=== PATIENT | male | born 1965 | race Caucasian/White ===

== ENCOUNTER 2016-05-17 16:30 | Emergency (ER) | payer OTHER ==
--- NOTE | 2016-05-17 17:12 | DIAGNOSTIC IMAGING REPORT ---
PROCEDURE: XR CHEST 2 VIEW INDICATION: ASPIRATION TECHNIQUE: PA and lateral views. COMPARISON: None. FINDINGS: Slight bibasilar infiltrates. The upper lung camacho are clear. Heart and mediastinum are normal. Thorax is normal. IMPRESSION: 1. Slight bibasilar infiltrates.
--- NOTE | 2016-05-17 18:34 | ED CLINICAL REPORT ---
Clinical Report - Physicians/Mid Levels [facility] [address] [place] [address] 05/17/2016 16:32 Patient: ANYI REDDY Time Seen: 1640. Arrived- By ambulance. Historian- patient. HISTORY OF PRESENT ILLNESS Is no longer unconscious. He has recovered. Chief Complaint: SINGLE SYNCOPAL EPISODE. This occurred today. It was abrupt in onset and has been intermittent. 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 Event was witnessed. There were preceding symptoms. At time of event, he was standing. The patient lost consciousness, was apneic and collapsed. Had a single episode. The episode lasted minutes. No injuries noted. Currently he feels normal. No weakness currently. No nausea currently. No headache currently. (was drinking coffee and aspirated. started coughing and turned blue around the lips. called 911 and told her to do CPR. Patient woke up after minutes. has hx of COPD. on abx for recent infection.). Similar symptoms previously: None. Recent medical care: The patient was seen recently in a clinic. REVIEW OF SYSTEMS No skin rash. All systems otherwise negative, except as recorded above. PAST HISTORY See nurses notes. Medications: Metoprolol Tartrate Oral. RisperiDONE Oral. PredniSONE Oral. Amoxicillin Oral. Albuterol Sulfate HFA Inhalation. Allergies: No Known Drug Allergy. SOCIAL HISTORY Smoker- current status unknown. History of occasional drug use: marijuana. Is a local resident. FAMILY HISTORY Negative. ADDITIONAL NOTES The nursing notes have been reviewed. PHYSICAL EXAM Vital Signs: 05/17/2016 16:34 BP: 138/92. HR: 87. RR: 16. O2 saturation: 95%. Temp: 97.7 F. Pain level now: 0/10. Oxygen saturation normal. Appearance: Alert. No acute distress. Eyes: Pupils equal, round and reactive to light. No nystagmus. Extraocular movements normal. ENT: Normal ENT inspection. TM's normal. Moist mucous membranes. Pharynx normal. Neck: Normal inspection. Neck supple. CVS: Normal heart rate and rhythm. Heart sounds normal. Pulses normal. Respiratory: No respiratory distress. Breath sounds normal. Abdomen: Soft and nontender. No organomegaly. Skin: Skin warm and dry. Normal skin color. No rash. Normal skin turgor. Extremities: Extremities exhibit normal ROM. No lower extremity edema. Neuro: Alert. Oriented X 3. Mood/affect normal. Cranial nerves normal (as tested). No cerebellar findings. No motor deficit. No sensory deficit. Reflexes normal. LABS, X-RAYS, AND EKG EKG: No acute process. No acute ischemia. Normal EKG. Normal sinus rhythm. Rate: 91. Normal P waves. Normal MARITZA. Normal QRS complex. Normal axis. Normal ST and T waves, QT and QTc. The study has been interpreted contemporaneously. The study has been independently viewed by me. The EKG appears to be a good tracing. Chest X-ray: (PROCEDURE: XR CHEST 2 VIEW INDICATION: ASPIRATION TECHNIQUE: PA and lateral views. COMPARISON: None. FINDINGS: Slight bibasilar infiltrates. The upper lung camacho are clear. Heart and mediastinum are normal. Thorax is normal. IMPRESSION: 1. Slight bibasilar infiltrates.). Laboratory Tests: CBC w Diff: (JL: 05/17/2016 17:15) ( MsgRcvd 05/17/2016 17:23) Final results Test Result Flag Units (Reference) WHITE BLOOD COUNT 11.0 K/uL (4.5-11.5) RED BLOOD COUNT 5.24 M/uL (4.50-5.90) HEMOGLOBIN 15.0 gm/dL (13.5-17.5) HEMATOCRIT 45.3 % (41.0-53.0) MEAN CELL VOLUME 86 fL (80-100) MEAN CORPUSCULAR HGB 29 pg (26-34) MEAN CORPUSCULAR HGB CONC 33 g/dL (31-37) RED CELL DISTRIBUTION WIDTH 14.1 % (11.6-14.8) PLATELET COUNT 270 K/uL (150-400) NEUTROPHIL % 74.0 % (50-75) LYMPH % 19.7 L % (25-40) MONO % 6.0 % (3-14) EOSINOPHIL % 0 % (0-4) BASOPHIL % 0.3 % (0-2) Troponin-I: (JL: 05/17/2016 17:57) ( MsgRcvd 05/17/2016 18:15) Final results Test Result Flag Units (Reference) TROPONIN I <0.05 L ng/mL (0.00-1.5) TROPONIN REFERENCE RANGE:<0.1 NEGATIVE0.1-1.5 INDETERMINANT>1.5 POSITIVE CMP: (JL: 05/17/2016 17:15) ( MsgRcvd 05/17/2016 17:39) Final results Test Result Flag Units (Reference) GLUCOSE 136 H mg/dL (70-110) BUN 11 mg/dL (7-18) CREATININE 0.8 mg/dL (0.6-1.3) Estimated GFR >60 mL/min Estimated GFR- >60 mL/min Note: Persistent reduction over 3 months in eGFR<60 mL/min/1.73 m2 defines CKD. Patients with eGFR values>=60 mL/min/1.73 m2 may also have CKD if evidence ofpersistent proteinuria. Additional information may be foundat [email or web address].org. SODIUM 138 mmol/L (136-145) POTASSIUM 3.9 mmol/L (3.5-5.1) CHLORIDE 99 mmol/L (98-107) CARBON DIOXIDE 31 mmol/L (21-32) CALCIUM 8.8 mg/dL (8.5-10.1) TOTAL PROTEIN 7.0 g/dL (6.4-8.2) ALBUMIN 3.3 g/dL (3.3-5.0) BILIRUBIN, TOTAL 0.4 mg/dL (0.0-1.0) ALKALINE PHOSPHATASE 86 U/L (46-116) AST (SGOT) 30 U/L (15-37) ALT (SGPT) 65 U/L (12-78) . PROGRESS AND PROCEDURES Course of Care: the patient is a pleasant 51-year-old male presenting for evaluation of syncopal type event. Appears to be related to an episode of aspiration and likely hypoxia. Patient will be evaluated the EKG and chest x-ray as well as laboratory studies for evaluation of patient's syncopal event. Patient is also been having upper respiratory tract symptoms. Patient also has history of COPD. Be concern for also underlying aspiration pneumonia versus COPD exacerbation/bronchitis. Patient is currently resting in bed and in no acute distress. Patient is requesting to return home immediately if possible. Explained to patient need for evaluation in the hospital. Patient is agreeable to the treatment and plan. patient's workup was markable for bilateral infiltrates/the patient is at the bases. Given patient's history, again either COPD exacerbation or aspiration pneumonitis. Because of the patient's symptoms here in the emergency department and history, patient will be given antibiotics for the consolidations. Patient is agreeable to treatment plan. Troponin was also noted to be negative on patient's workup. No other acute abnormalities noted. Patient with acceptable oxygen saturation levels. Patient is resting in bed and in no acute distress and appears nontoxic. Patient is a stable outpatient candidate. Patient appears to be reliable. Head discussion patient in regards to his workup here in the emergency department including diagnosis, home care, follow-up, and return precautions. All questions have been answered. The patient expressed understanding of these instructions and was agreeable to them. CLINICAL IMPRESSION Syncope(acute). 05/17/2016 17:50 BP: 118/86. HR: 93. RR: 18. O2 saturation: 92%. Blood pressure normal. Oxygen saturation: borderline. Bacterial pneumonia. Empiric antibiotics given in the ED. Hypoxia (acute resolved). acute aspiration pneumontitis. INSTRUCTIONS Warnings: GENERAL WARNINGS: Return or contact your physician immediately if your condition worsens or changes unexpectedly, if not improving as expected, or if other problems arise. SPECIFICALLY, return if you develop chest pain, fluttering sensation in your chest, lightheadedness, fainting, numbness, weakness or extreme fatigue. shortness of breath. Your Current Medications: CONTINUE TAKING THE FOLLOWING MEDICATIONS: Albuterol Sulfate HFA Inhalation. Amoxicillin Oral. Metoprolol Tartrate Oral. PredniSONE Oral. RisperiDONE Oral. Prescription Medications: Zithromax Z-Cong: Take according to package instructions. No refills. Substitution is permissible. Follow-up: Return to the emergency department as needed. Follow up with your doctor in three days. Reason for referral: recheck today's concerns. Screening today revealed the patient's blood pressure to be in the normal range. The patient should follow up with a primary care provider for blood pressure management. Understanding of the discharge instructions verbalized by patient. (Electronically signed by Ivan Myers Dr. 05/21/2016 10:44)
--- NOTE | 2016-05-17 18:34 | ED NURSING NOTES ---
Clinical Report - Nurses [facility] [address] [place] [address] 05/17/2016 16:32 Patient: ANYI REDDY TRIAGE Triage time 16:34 May 17 2016. Acuity: LEVEL 3. Chief Complaint: (Patient was sitting on couch at home, took a drink of coffee, started coughing, went to stand and fell over, he had circumoral pallor, called 911 and they instructed her to start CPR, EMS states she did this for about a minute and patient woke up). 16:42 05/17/16. SEPSIS SCREEN: Sepsis Screen. Negative (no infection suspected/documented). BRITNI COMA SCORE: Britni Coma Scale: 14- eyes open spontaneously (4); best verbal response- disoriented (4); best motor response- obeys commands (6). (Disoriented to time). --16:42 Yoana Flores R.N. 16:34 05/17/16. BP: 138/92 (regular adult cuff) taken on the left arm, while sitting. HR: 87 (regular). RR: 16 (regular). O2 saturation: 95% on room air. Temp: 97.7 F (oral). Pain level now: 0/10. --16:42 Yoana Flores R.N. Weight: 97.5 kg stated. Height/Length: 62 inches Per Patient. BMI: 39.4. --16:39 Yoana Flores R.N. Medications Albuterol Sulfate HFA Inhalation. --16:58 Yoana Flores R.N. Amoxicillin Oral. --16:58 Yoana Flores R.N. PredniSONE Oral. --16:59 Yoana Flores R.N. RisperiDONE Oral. --16:59 Yoana Flores R.N. Metoprolol Tartrate Oral. --16:59 Yoana Flores R.N. Allergies No Known Drug Allergy. --16:38 Yoana Flores R.N. History Arrived by EMS. Historian: EMS. This started just prior to arrival. ( Patient not sure of medications). He has had a cough. ( Patient just getting over the flu, he admits to not drinking water). PAST MEDICAL HX: ( COPD). SOCIAL HX: Current every day heavy tobacco smoker- 1 pack per day. History of drug use: marijuana. No alcohol use. No infectious disease exposure. ABUSE ASSESSMENT: No report of abuse. --16:42 Yoana Flores R.N. PROBLEMS: Schizophrenia. COPD - Chronic Obstructive Pulmonary Disease. --16:39 Yoana Flroes R.N. Hypertension. --16:59 Yoana Flores R.N. ADDITIONAL SURGERIES: Neck Surgery. --16:39 Yoana Flores R.N. Interventions ID band on patient. To treatment room. --16:42 Yoana Flores R.N. PHYSICAL ASSESSMENT To room via stretcher. Patient gowned. GENERAL / NEURO / PSYCH: Alert. The patient is disoriented to time. HEENT: Pupils equal, round and reactive to light. No facial asymmetry noted. Mucous membranes are pink. RESPIRATORY: Mild respiratory distress. The patient can speak in full sentences. Chest nontender. Wheezing present. CVS: Capillary refill less than 2 seconds. Pulses within normal limits. GI / : Abdomen soft and nontender and normal bowel sounds. SKIN: Skin intact. Skin is warm. --16:45 Yoana Flores R.N. NURSING PROGRESS NOTES The plan of care for this patient has been created. Oxygen administered. Monitoring of patient in place. Patient gowned. Head of bed elevated. Reassurance given. Two patient identifiers checked. Call light placed in reach. Side rails up x 2. Bed placed in lowest position. Brakes of bed on. Patient ready for evaluation- chart flagged and ED physician notified. --16:46 Yoana Flores R.N. Patient returned from radiology by stretcher with tech. (17:03 May 17 2016). --17:03 Yoana Flores R.N. 16:50 05/17/2016 Site #1 started prior to arrival by EMS via IV in the left antecubital space with an 20g angiocath. --17:05 Yoana Flores R.N. ( Patients family at bedside). --17:16 Yoana Flores R.N. 16:25 05/17/16. BP: 127/88 (large adult cuff) taken on the left arm, while lying. HR: 93. RR: 18. O2 saturation: 93% on nasal cannula at 2 liters/minute. --17:17 Yoana Flores R.NAngelika 16:45 05/17/16. BP: 111/82 (large adult cuff) taken on the left arm, while lying. HR: 94. RR: 16. O2 saturation: 94% on nasal cannula at 2 liters/minute. --17:18 Yoana Flores R.N. 16:55 05/17/16. BP: 117/75. HR: 91. RR: 18. O2 saturation: 94% on nasal cannula at 2 liters/minute. --17:19 Yoana Flores R.N. ( Patient up to use the restroom, no staggering, normal walk, patient states he is not dizzy or lightheaded.). --17:43 Yoana Flores R.N. 17:10 05/17/16. BP: 117/70 (large adult cuff) taken on the left arm, while lying. HR: 91. RR: 16. O2 saturation: 93% on nasal cannula at 2 liters/minute. --17:49 Yoana Flores R.NAngelika 17:50 05/17/16. BP: 118/86 (regular adult cuff) taken on the left arm, while lying. HR: 93. RR: 18. O2 saturation: 92% on nasal cannula at 2 liters/minute. --17:50 Yoana Flores R.N. ( Patients family left to go home). --17:50 Yoana Flores R.NAngelika 18:15 05/17/16. BP: 125/87 (large adult cuff) taken on the right arm, while sitting. HR: 90 (regular). RR: 18. O2 saturation: 90% on nasal cannula at 2 liters/minute. Pain level now: 0/10. --18:56 Yoana Flores R.N. 18:00 05/17/16. BP: 120/79 (large adult cuff) taken on the right arm, while sitting. HR: 92. RR: 18. O2 saturation: 90% on nasal cannula at 2 liters/minute. Pain level now: 0/10. --18:57 Yoana Flores R.N. 17:35 05/17/16. BP: 118/86. HR: 93. RR: 18. O2 saturation: 93% on nasal cannula at 2 liters/minute. Pain level now: 0/10. --18:58 Yoana Flores R.N. 17:25 05/17/16. BP: 117/70 (large adult cuff) taken on the right arm, while sitting. HR: 94. RR: 18. O2 saturation: 93% on nasal cannula at 2 liters/minute. Pain level now: 0/10. --18:58 Yoana Flores R.N. DISPOSITION / DISCHARGE 18:49 05/17/2016 Site #1 removed upon discharge. Bandaid applied. --18:49 Yoana Flores R.N. Departure time: 18:51 May 17 2016. Condition at departure: improved. No learning barriers present. Discharge instructions provided and reviewed with the patient. Reviewed medication(s) side effects, precautions and dosing information. Prescription(s) given to the patient. Patient verbalized understanding. Written instructions provided in Greek. The patient was discharged by the physician. He was discharged home and accompanied by spouse. He left the Emergency Department ambulatory and via private vehicle. Spouse driving. ( Patient discharged in good condition, no further questions, he will go wait in lobby for girlfriend). --18:51 Yoana Flores R.N. 18:46 05/17/16. BP: 120/84 (large adult cuff) taken on the right arm, while lying. HR: 94. RR: 18. O2 saturation: 93% on nasal cannula at 2 liters/minute. Temp: 97.8 F (oral). Pain level now: 0/10. --18:51 Yoana Flores R.N. Locked/Released at 05/17/2016 19:01 by Yoana Flores R.N.
--- NOTE | 2016-05-17 18:35 | ED ORDER SUMMARY ---
..... Patient: ANYI REDDY OrderSheet [facility] VisitID: [id number] [address] [place] [address] 51y, M Registration Date/Time: 05/17/2016 ORDER SHEET Weight: 97.5 kg (stated) Allergies: No Known Drug Allergy GENERAL ORDERS: EKG - ER Stat (16:39 05/17/2016 Albert Harden) (Ack 16:42 DAVIDoerner) (17:05 Bud R.N.) Chest 2V Urgent (16:45 05/17/2016 Albert Harden) (Ack 16:48 Santo) (16:59 Yaeck R.N.) Photograph Printer (Continuous) (aspiration and hypoxia with recent chest compressions) (16:46 05/17/2016 Albert Harden) (16:51 Harley R.N.) CBC w Diff Urgent (16:46 05/17/2016 Albert Harden) (Ack 16:48 Santo) (17:19 Harley R.N.) CMP Urgent (16:46 05/17/2016 Albert Harden) (Ack 16:48 Santo) (17:19 Harley R.N.) Pulse oximeter (16:46 05/17/2016 Albert Harden) (16:51 Harley R.N.) Oxygen (2 L/min) (NC) (16:46 05/17/2016 Albert Harden) (16:51 Harley R.N.) Troponin-I Urgent (17:55 05/17/2016 Albert Harden) (Ack 17:58 LNations ER Tech1) (18:50 LNations ER Tech1) MEDICATION ORDERS: IV FLUIDS: ORDER SHEET NOTES: [Electronically signed by Yoana Flores R.N. (19:01 05/17/2016)] [Electronically signed by Ivan Myers Dr. (10:44 05/21/2016)] [Electronically locked/signed by Yoana Flores R.N. (19:01 05/17/2016)]
--- NOTE | 2016-05-17 18:35 | ED ORDER SUMMARY ---
..... Patient: ANYI REDDY OrderSheet 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) (aspiration and hypoxia with recent chest compressions) (16:46 05/17/2016 Albert Harden) (16:51 Harley R.N.) CBC w Diff Urgent (16:46 05/17/2016 Albert Harden) (Ack 16:48 Santo) (17:19 Harley R.N.) CMP Urgent (16:46 05/17/2016 Albert Harden) (Ack 16:48 Santo) (17:19 Harley R.N.) Pulse oximeter (16:46 05/17/2016 Albert Harden) (16:51 Harley R.N.) Oxygen (2 L/min) (NC) (16:46 05/17/2016 Albert Harden) (16:51 Harley R.N.) Troponin-I Urgent (17:55 05/17/2016 Albert Harden) (Ack 17:58 LNations ER Tech1) (18:50 LNations ER Tech1) MEDICATION ORDERS: IV FLUIDS: ORDER SHEET NOTES: [Electronically signed by Yoana Flores R.N. (19:01 05/17/2016)] [Electronically signed by Ivan Myers Dr. (10:44 05/21/2016)] [Electronically locked/signed by Yoana Flores R.N. (19:01 05/17/2016)]
--- NOTE | 2016-05-21 10:44 | ED MED RECONCILIATION SUMMARY ---
Patient: ANYI REDDY Medication Reconciliation Report [facility] VisitID: [id number] [address] [place] [address] 51y, M Registration Date/Time: 05/17/2016 Weight: 97.5 kg Height/Length: 62 in. BMI: 39.4 ALLERGIES: No Known Drug Allergy The patient's Home Medications are listed below: CONTINUE TAKING THE FOLLOWING MEDICATIONS: Albuterol Sulfate HFA Inhalation Amoxicillin Oral Metoprolol Tartrate Oral PredniSONE Oral RisperiDONE Oral The source(s) of the original Home Medication information: Not obtained. The following Medications were given to the patient in the Emergency Department: None. The following Medications were prescribed to the patient: Zithromax Z-Cong: Take according to package instructions. No refills. Substitution is permissible. -- Ivan Myers Dr.
--- NOTE | 2016-05-21 10:44 | ED MAR SUMMARY ---
..... Medication Administration Record [facility] [address] [place], [place] [id number] Patient: ANYI REDDY Visit ID: [id number] 51y, M Weight: 97.5 kg Height/Length: 62 in BMI: 39.4 ALLERGIES: No Known Drug Allergy
--- NOTE | 2016-05-21 10:44 | ED MAR SUMMARY ---
..... Medication Administration Record [facility] [address] [place], [place] [id number] Patient: ANYI REDDY Visit ID: [id number] 51y, M Weight: 97.5 kg Height/Length: 62 in BMI: 39.4 ALLERGIES: No Known Drug Allergy
--- NOTE | 2016-05-21 10:44 | ED DISCHARGE INSTRUCTIONS ---
Patient: ANYI REDDY General Instructions [facility] VisitID: [id number] [place] [address] 51y, M Registration Date/Time: 05/17/2016 Syncope(acute). 05/17/2016 17:50 BP: 118/86. HR: 93. RR: 18. O2 saturation: 92%. Blood pressure normal. Oxygen saturation: borderline. Bacterial pneumonia. Empiric antibiotics given in the ED. Hypoxia (acute resolved). acute aspiration pneumontitis. INSTRUCTIONS Warnings: GENERAL WARNINGS: Return or contact your physician immediately if your condition worsens or changes unexpectedly, if not improving as expected, or if other problems arise. SPECIFICALLY, return if you develop chest pain, fluttering sensation in your chest, lightheadedness, fainting, numbness, weakness or extreme fatigue. shortness of breath. Your Current Medications: CONTINUE TAKING THE FOLLOWING MEDICATIONS: Albuterol Sulfate HFA Inhalation. Amoxicillin Oral. Metoprolol Tartrate Oral. PredniSONE Oral. RisperiDONE Oral. Prescription Medications: Zithromax Z-Cong: Take according to package instructions. No refills. Substitution is permissible. Follow-up: Return to the emergency department as needed. Follow up with your doctor in three days. Reason for referral: recheck today's concerns. Screening today revealed the patient's blood pressure to be in the normal range. The patient should follow up with a primary care provider for blood pressure management. Understanding of the discharge instructions verbalized by patient. ADDITIONAL INFORMATION Fainting:Uncertain Cause Fainting (syncope) is a temporary loss of consciousness ("passing out"). It occurs when blood flow to the brain is reduced. Near-fainting ("near-syncope") is very similar to fainting, but you do not fully "pass out". The common minor causes of fainting include: sudden fear, pain, nausea, emotional stress and overexertion. Suddenly standing up after sitting or lying for a long time can also cause fainting. The more serious causes for fainting are due to either a very slow or very fast or very slow heart beat ("arrhythmia"), other types of heart disease, dehydration, blood loss, seizure, stroke or ruptured blood vessel in the brain. Taking too much high blood pressure medicine can also cause low blood pressure and fainting. The exact cause of your episode is not certain. However, the tests today did not show any of the serious causes of fainting. Sometimes further testing is needed to find out if a serious problem exists. Therefore, it is important that you follow-up with your doctor as advised. Home Care: 1) Rest today. You may resume your normal activities when you are feeling back to normal. It is best to remain with someone who can check on you for the next 24 hours to watch for another episode of fainting. 2) If you become light-headed or dizzy, lie down immediately or sit with your head between your knees. 3) Because we do not know the exact cause of your near fainting spell, it is possible for another spell to occur without warning. Therefore, do not drive a car or operate dangerous equipment, do not take a bath alone (use a shower instead) and do not swim alone until your doctor says that you are no longer in danger of having another fainting spell. Follow Up with your doctor as advised. Get Prompt Medical Attention if any of the following occur: -- Another fainting spell occurs, which is not explained by the common causes listed above -- Chest, arm, neck, jaw, back or abdominal pain -- Shortness of breath -- Severe headache or seizure -- Blood in vomit, stools (black or red color) -- Unexpected vaginal bleeding -- Palpitations (very rapid or very slow or irregular heart beat) -- Signs of stroke: Weakness of an arm or leg or one side of the face Difficulty with speech or vision Extreme drowsiness, confusion, dizziness or fainting Pneumonia (Adult) Pneumonia is an infection deep within the lung, in the small air sacs (alveoli). It may be due to a virus or bacteria and is usually treated with an antibiotic. Severe cases require treatment in the hospital. Milder cases can be treated at home. Symptoms usually start to improve during the first2 days of treatment. Home Care: Rest at home for the first 23 days or until you feel stronger. When resuming activity, dont let yourself become overly tired. Avoid exposure to cigarette smoke (yours or others). You may use acetaminophen (Tylenol) or ibuprofen (Motrin, Advil) to control fever or pain, unless another medicine was prescribed. [NOTE: If you have chronic liver or kidney disease or ever had a stomach ulcer or GI bleeding, talk with your doctor before using these medicines.] (Aspirin should never be used in anyone under 18 years of age who is ill with a fever. It may cause severe liver damage.) Your appetite may be poor so a light diet is fine. Keep well hydrated by drinking 68 glasses of fluids per day (water, sport drinks such as Gatorade, sodas without caffeine, juices, tea, soup, etc.). This will help loosen secretions in the lung, making it easier for you to cough up the phlegm (sputum). If you also have heart or kidney disease, check with your doctor before you drink extra amounts of fluids. Finish all antibiotic medicine prescribed, even if you are feeling better after a few days. Follow Up with your doctor in the next 23 days (or as advised) to be sure you are responding properly to the medicine. [NOTE: If you are age 65 or older, or if you have chronic lung disease (asthma, emphysema or COPD), we recommendthe pneumococcal vaccination and a yearlyinfluenzavaccination(flu-shot) every . Ask your doctor about this.] Get Prompt Medical Attention if any of the following occur: Not getting better within the first 48 hours of treatment Increasing shortness of breath or rapid breathing (over 25 breaths/minute) Coughing up blood or increasing chest pain with breathing Fever of 100.4F (38C) oral or higher, not better with fever medication Increasing weakness, dizziness or fainting Increasing thirst or dry mouth Sinus pain, headache or a stiff neck Chest pain not caused by coughing Azithromycin Oral tablet What is this medicine? AZITHROMYCIN (az ith rach MYE sin) is a macrolide antibiotic. It is used to treat or prevent certain kinds of bacterial infections. It will not work for colds, flu, or other viral infections. How should I use this medicine? Take this medicine by mouth with a full glass of water. Follow the directions on the prescription label. The tablets can be taken with food or on an empty stomach. If the medicine upsets your stomach, take it with food. Take your medicine at regular intervals. Do not take your medicine more often than directed. Take all of your medicine as directed even if you think your are better. Do not skip doses or stop your medicine early. Talk to your child daycare worker regarding the use of this medicine in children. Special care may be needed. What side effects may I notice from receiving this medicine? Side effects that you should report to your doctor or health md do resident urgent care as soon as possible: allergic reactions like skin rash, itching or hives, swelling of the face, lips, or tongue confusion, nightmares or hallucinations dark urine difficulty breathing hearing loss irregular heartbeat or chest pain pain or difficulty passing urine redness, blistering, peeling or loosening of the skin, including inside the mouth white patches or sores in the mouth yellowing of the eyes or skin Side effects that usually do not require medical attention (report to your doctor or health md do resident urgent care if they continue or are bothersome): diarrhea dizziness, drowsiness headache stomach upset or vomiting tooth discoloration vaginal irritation What may interact with this medicine? Do not take this medicine with any of the following medications: lincomycin This medicine may also interact with the following medications: amiodarone antacids cyclosporine digoxin magnesium nelfinavir phenytoin warfarin What if I miss a dose? If you miss a dose, take it as soon as you can. If it is almost time for your next dose, take only that dose. Do not take double or extra doses. Where should I keep my medicine? Keep out of the reach of children. Store at room temperature between 15 and 30 degrees C (59 and 86 degrees F). Throw away any unused medicine after the expiration date. What should I tell my health care provider before I take this medicine? They need to know if you have any of these conditions: kidney disease liver disease irregular heartbeat or heart disease an unusual or allergic reaction to azithromycin, erythromycin, other macrolide antibiotics, foods, dyes, or preservatives or trying to get breast-feeding What should I watch for while using this medicine? Tell your doctor or health md do resident urgent care if your symptoms do not improve. Do not treat diarrhea with over the counter products. Contact your doctor if you have diarrhea that lasts more than 2 days or if it is severe and watery. This medicine can make you more sensitive to the sun. Keep out of the sun. If you cannot avoid being in the sun, wear protective clothing and use sunscreen. Do not use sun lamps or tanning beds/booths. You have been given the following additional information: Syncope, Unk Cause Pneumonia (Adult) Azithromycin Oral tablet (Electronically signed by Ivan Myers Dr. 05/21/2016 10:44)
--- NOTE | 2016-05-21 10:44 | ED MED RECONCILIATION SUMMARY ---
Patient: ANYI REDDY Medication Reconciliation Report [facility] VisitID: [id number] [address] [place] [address] 51y, M Registration Date/Time: 05/17/2016 Weight: 97.5 kg Height/Length: 62 in. BMI: 39.4 ALLERGIES: No Known Drug Allergy The patient's Home Medications are listed below: CONTINUE TAKING THE FOLLOWING MEDICATIONS: Albuterol Sulfate HFA Inhalation Amoxicillin Oral Metoprolol Tartrate Oral PredniSONE Oral RisperiDONE Oral The source(s) of the original Home Medication information: Not obtained. The following Medications were given to the patient in the Emergency Department: None. The following Medications were prescribed to the patient: Zithromax Z-Cong: Take according to package instructions. No refills. Substitution is permissible. -- Ivan Myers Dr.
== END 2016-05-17 18:57 | disposition home or self-care (01) ==
LOC: ED SRH 16:30
DX: R55 Syncope and collapse (principal); J15.9 Unspecified bacterial pneumonia; J69.0 Pneumonitis due to inhalation of food and vomit; J44.9 Chronic obstructive pulmonary disease, unspecified
CPT/HCPCS: 90074; 90100; 90616; 95059